=== PATIENT | female | born 1945 | race Caucasian/White ===

== ENCOUNTER → 2024-05-26 11:00 | Outpatient (REF) | payer MEDICARE, OTHER, SELFPAY | LOC: RAD 11:00 | PROVIDERS: ATTENDING PHYSICIAN Internal Medicine Hematology & Oncology; FAMILY PHYSICIAN Family Medicine Geriatric Medicine | DX: C50.412 Malignant neoplasm of upper-outer quadrant of left female breast (principal); Z79.811 Long term (current) use of aromatase inhibitors | CPT/HCPCS: 77080 ==

== ENCOUNTER → 2025-02-09 16:00 | Outpatient (REF) | payer MEDICARE, OTHER, SELFPAY | LOC: WDC 16:00 | PROVIDERS: ATTENDING PHYSICIAN Family Medicine Geriatric Medicine; FAMILY PHYSICIAN Internal Medicine | DX: Z12.31 Encounter for screening mammogram for malignant neoplasm of breast (principal); Z12.39 Encounter for other screening for malignant neoplasm of breast; Z85.3 Personal history of malignant neoplasm of breast | CPT/HCPCS: 77063; 77067 ==

== ENCOUNTER → 2025-03-30 12:50 | Outpatient (REF) | payer MEDICARE, OTHER, SELFPAY | LOC: WDC 12:50 | PROVIDERS: ATTENDING PHYSICIAN Family Medicine Geriatric Medicine; FAMILY PHYSICIAN Internal Medicine | DX: R92.2 Inconclusive mammogram (principal); R92.30 Dense breasts, unspecified; Z85.3 Personal history of malignant neoplasm of breast; Z12.39 Encounter for other screening for malignant neoplasm of breast | CPT/HCPCS: 76641 ==